=== PATIENT | male | born 1990 | race Caucasian/White ===

== ENCOUNTER 2019-05-07 13:06 | Emergency (ER) | payer MEDICAID, SELFPAY ==
[2019-05-07 13:30] VITALS: BP 145/86; PULSE 67; RESP 16; TEMP 36.6; O2SAT 95
[2019-05-07] MEDS: Bupivacaine 0.5% Pres-Free 30 ML VIAL (13:35)
--- NOTE | 2019-05-07 13:40 | W.ED.GENAD ---
Discharge Plan Disposition Patient Disposition: HOME Condition: Good Discharge Details Chief Complaint: DentalOral Clinical Impression: Pain, dental Primary Care Provider: None,None ED Provider: José Miguel Crockett Home Meds and New Rx's Prescriptions: New amoxicillin-pot clavulanate [Augmentin] 875-125 mg tablet 1 tab PO BID Qty: 20 RF: 0 Discharge Instructions Instructions: Toothache (ED) Additional Instructions: You have a broken tooth with subsequent pain. Please take the antibiotic as directed, contact your dentist as soon as possible, and take Tylenol and Motrin as directed. You can take 800 mg of ibuprofen every 6 hours and 1000 mg of Tylenol every 6 hours. If you notice any worsening of your symptoms, or any new symptoms such as vomiting, diarrhea, fever, chills, shortness of breath, chest pain, numbness, weakness, or fainting , please return immediately to the emergency department for reevaluation. Please follow up with your primary care provider as soon as possible for reassessment and reevaluation. As always, it was a pleasure participating in your medical care today. Medical Decision Making This is a 29-year-old male with a history of notable poor dentition dental caries who presents today for 3 days of right frontal upper incisor pain, he fractured his tooth and has had pain since then. Exam demonstrates a dental carry on his fractured tooth. No evidence of periapical abscess or other red flags. Dental block was performed and he had near complete resolution of his pain. He will be discharged home with Augmentin, a dental sheet, recommendations for close follow-up, and Tylenol Motrin. We discussed red flags which to return. I have extensively reviewed the treatment plan and discharge instructions with the patient and their family. I have addressed all patient concerns at this time. The patient and family was made aware of what symptoms to monitor for that would warrant a return to the emergency department. Discussed the plan with the patient and family, they demonstrate verbal understanding and agreement with our assessment and plan at this time. Time out was taken to identify the correct patient, procedure, and site. Risks and benefits were discussed with the patient and consent was obtained. Direct pressure was held over the area prior to the procedure to reduce painful injection. 5 cc?s of Lidocaine 1% and Bupivacaine 0.25% was instilled into the right upper superior alveolar space over the canine with a 27 gauge needle.Complete analgesia was obtained. The patient tolerated the procedure. There were no complications. HPI General Date/Time Provider Initiated Documentation: 05/07/19 13:28. HPI Narrative: This is a 29-year-old male with no significant past medical history except for poor dentition who presents today for dental pain. Patient states that over the last 2 to 3 days he has noted significant pain after a nontraumatic breaking of his right upper incisor. Since then pain has gradually worsened, and has become unbearable. He denies any fever or chills. He has not seen a dentist for years, and he has notably been delaying care for his teeth. He denies any headache, neck pain, shortness of breath, discharge. No other modifying factors. No recent past surgical history, no pertinent family history. Related Data Home Medications Medication Instructions Recorded Confirmed amoxicillin-pot clavulanate 1 tab PO BID #20 tab 05/07/19 [Augmentin] Previous Rx's Medication Instructions Recorded amoxicillin-pot clavulanate 1 tab PO BID #20 tab 05/07/19 [Augmentin] Allergies Allergy/AdvReac Type Severity Reaction Status Date / Time No Known Allergies Allergy Unverified 05/07/19 13:32 General Stated Complaint: DentalOral CHELSI: 4 Review of Systems Review of Systems All systems reviewed & are unremarkable except as noted in HPI and below PFSH Social History Smoking/Tobacco Use Status: Never Alcohol Intake: never Substance use type: marijuana Do you feel safe in your relationship?: Yes Exam Narrative Exam Narrative: 1.Const: Well-nourished, Well-developed, appearing stated age 2.Eyes: PERRL, no conjunctival injection, and symmetrical lids. 3.ENT: Atraumatic external nose and ears. Moist MM. Neck: Symmetric, trachea midline, No thyromegaly. Notably poor dentition throughout, fractured tooth with evidence of notable dental caries over the right front upper incisor. No evidence of drainage, no evidence of periapical abscess. 4.CVS: +S1/S2, No murmurs or gallops. Peripheral pulses 2+ and equal in all extremities. Brisk capillary refill in all extremities. 5.RESP: Unlabored respiratory effort. Clear to auscultation bilaterally. No wheezes rales or rhonchi 6.GI: Soft, Nontender/Nondistended, No hepatosplenomegaly. No guarding or rebound. 7.MSK: Normocephalic/Atraumatic, Extremities w/o deformity or ttp No cyanosis or clubbing, Normal movement of all extremities 8.Skin: Warm, Dry. No rashes or lesions. 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 Sensation grossly intact, no focal neurologic deficits. 10.Psych: (AAO) x3. Appropriate mood and affect Course Vital Signs Temperature 36.6 C 05/07/19 13:30 Pulse 67 05/07/19 13:30 Respiratory Rate 16 05/07/19 13:30 Blood Pressure 145/86 H 05/07/19 13:30 Pulse Oximetry 95 05/07/19 13:30 Temperature 36.6 C 05/07/19 13:30 Temperature Source Skin 05/07/19 13:30 Pulse 67 05/07/19 13:30 Respiratory Rate 16 05/07/19 13:30 Respiratory Effort Non-Labored 05/07/19 13:30 Blood Pressure 145/86 H 05/07/19 13:30 Blood Pressure Position Sitting 05/07/19 13:30 Pulse Oximetry 95 05/07/19 13:30 Oxygen Delivery Method Room Air 05/07/19 13:30 Oxygen Flow Rate 0 05/07/19 13:30 Pain Level 10 05/07/19 13:30
--- NOTE | 2019-05-07 14:16 | NUR.NOTE ---
Nursing Note: Patient called stating feels like pain coming back. Per Dr. Crockett to do the tylenol, motrin and ice application as discussed. If the pain then continues or get worse then to return to the ED. Rosmery Stone.
== END 2019-05-07 13:49 | disposition home or self-care (01) ==
LOC: ER 13:48
PROVIDERS: Emergency Provider Student in an Organized Health Care Education/Training Program
DX: K08.89 Other specified disorders of teeth and supporting structures (principal); K02.9 Dental caries, unspecified; K03.81 Cracked tooth
CPT/HCPCS: 99283

== ENCOUNTER 2020-04-10 11:07 | Emergency (ER) | payer MEDICAID, SELFPAY ==
[2020-04-10 11:12] VITALS: BP 126/80; PULSE 77; RESP 16; TEMP 36.9; O2SAT 100
--- NOTE | 2020-04-10 11:47 | W.ED.GENAD ---
Discharge Plan Disposition Patient Disposition: HOME Condition: Stable Discharge Details Chief Complaint: Nk/Back Pain Clinical Impression: Acute back pain Primary Care Provider: Ari Barker ED Provider: Junior Wilcox Home Meds and New Rx's Prescriptions: No Action No Known Home Meds RF: 0 Discharge Instructions Instructions: Back Pain (ED) Additional Instructions: At this time we discussed an x-ray and you have declined. You do not want any stronger pain medication and you have told me that you will continue using marijuana for pain relief. I do recommend [id number] Tylenol and/or Motrin as directed as well. Cool and/or warm compresses every 2 hours for 20 minutes. Please watch for new or worsening symptoms and return to the ER for any concerns. Follow-up with your primary care provider as already scheduled next week but I do recommend attempts to be seen sooner. Outpatient physical therapy may be indicated if more conservative therapy does not help. Outpatient referral to orthopedics or back specialist may also be indicated. Stand Alone Forms: Work Release Discharge Data Discharge Date/Time-TO BE ENTERED AT DEPARTURE: 04/10/20 12:00 Medical Decision Making This is a 29-year-old gentleman who presents with left lower back pain that has been present since Wednesday. He denies any obvious trauma but does report heavy lifting repetitive motion at work. He was laid off for quite some time because of COVID, began working roughly 1 month ago. Denies any radiation of the discomfort, abdominal pain, pain in his testicles or scrotum, penile discharge, numbness, tingling, weakness in his lower extremities. He appears well, nontoxic, is afebrile, and he is neurologically intact. He declines any imaging or pain medication. Discussed that the most likely diagnosis is certainly musculoskeletal. No signs of cauda equina. Given he does not want additional medication or X-ray, therapy options are certainly limited. Patient would like a work note for the rest of the week, will continues an [id number] medication as well as using marijuana. He will follow-up with his primary care provider next month as already scheduled and if symptoms persist we will discuss physical therapy, potential referral to specialist. Patient has no additional questions or concerns and is comfortable with this plan. Upon discharge he ambulates steadily Medical Records Medical records reviewed: Yes I reviewed the patient's medical records. HPI General Mode of arrival: ambulatory. Date/Time Provider Initiated Documentation: 04/10/20 11:15. Limitations to Documentation: no limitations. Information obtained by: patient. HPI Narrative: This is a 29-year-old gentleman presenting for left lower back pain that began Wednesday, is worse with movement. He reports a history of sciatica but this feels differently. He reports that standing completely upright does make the pain worse. He did take [id number] Motrin with mild relief and reports better relief with marijuana. He does not want an x-ray today because he is concerned of the cost however he is concerned about a bulging disc. I explained to him that an MRI would likely be the study of choice, he would like to talk with his primary care regarding this. Patient tells me that he does not want any additional pain medication here in the ER. He denies recent illness or trauma reports heavy lifting and repetitive motion at work. He denies any fever, abdominal pain, midline point tenderness, change in bowel or bladder function, numbness, tingling, weakness in his lower extremities. Given he does not want pain medication or an x-ray, I asked the patient how I can best help him today. He would like a work note for the rest of the week Related Data Home Medications Medication Instructions Recorded Confirmed Unknown [No Known Home Meds] 04/10/20 04/10/20 Allergies Allergy/AdvReac Type Severity Reaction Status Date / Time No Known Allergies Allergy Unverified 04/10/20 11:16 General Stated Complaint: Nk/Back Pain CHELSI: 3 Review of Systems Constitutional Constitutional: Denies fatigue, Denies fever(s) and Denies weakness Cardiovascular Cardiovascular: Denies chest pain and Denies dyspnea Respiratory Respiratory: Denies cough and Denies dyspnea Gastrointestinal Gastrointestinal: Denies abdominal pain, Denies nausea and Denies vomiting Genitourinary Genitourinary: Denies dysuria Musculoskeletal Musculoskeletal: Reports back pain, Denies myalgias, Denies arthralgias, Denies numbness and Denies tingling Integumentary/Breasts Skin/Breast: Denies rash Neurologic Neurologic: Denies numbness, Denies tingling and Denies weakness Endocrine Endocrine: Denies fatigue [facility] Social History Smoking/Tobacco Use Status: Current every day Tobacco Type: cigarettes Alcohol Intake: never Drug use: Daily Substance use type: marijuana Do you feel safe in your relationship?: Yes Exam Const General: cooperative, healthy appearing, comfortable and no acute distress Orientation: alert and awake [facility] Head: normal to inspection, normocephalic and atraumatic Mouth: moist mucous membranes Eyes Conjunctivae: conjunctivae normal Neck Neck: normal visual inspection, full ROM, trachea midline, supple and nontender Resp Effort & Inspection: normal respiratory effort and able to speak in complete sentences Auscultation: clear to auscultation bilaterally Cardio Rate: regular rate Rhythm: regular rhythm GI Palpation: soft and nontender Back/Spine/Pelvis Back: back tenderness (Left lower lumbar region, no midline tenderness) Thoracic/Lumbar Spine: straight leg raise positive (Left leg 10 degrees, right leg 25 degrees) Skin General skin exam: no rashes or lesions noted Neuro General: patient alert, patient awake, patient oriented x3, moves all extremities and no focal motor deficits Gait: normal gait Motor: muscle tone normal throughout and strength 5/5 throughout Sensory Exam: no sensory deficits noted Extrem General: normal to inspection, full ROM, capillary refill normal, no pedal edema and no calf tenderness Psych Appearance: grossly normal Mental Status: mental status grossly normal Course Vital Signs Vital signs: Vital Signs Temperature 36.9 C 04/10/20 11:12 Pulse 77 04/10/20 11:12 Respiratory Rate 16 04/10/20 11:12 Blood Pressure 126/80 04/10/20 11:12 Pulse Oximetry 100 04/10/20 11:12 Temperature 36.9 C 04/10/20 11:12 Temperature Source Skin 04/10/20 11:12 Pulse 77 04/10/20 11:12 Respiratory Rate 16 04/10/20 11:12 Respiratory Effort 04/10/20 11:12 Blood Pressure 126/80 04/10/20 11:12 Blood Pressure Position Sitting 04/10/20 11:12 Pulse Oximetry 100 04/10/20 11:12 Oxygen Delivery Method Room Air 04/10/20 11:12 Oxygen Flow Rate 0 04/10/20 11:12 Pain Level 10 04/10/20 11:17
[2020-04-10 11:59] VITALS: BP 126/80; PULSE 77; RESP 16; TEMP 36.9; O2SAT 100
== END 2020-04-10 12:00 | disposition home or self-care (01) ==
PROVIDERS: Emergency Provider Physician Assistant; PCP Family Medicine
DX: M54.5 Low back pain (principal); X50.0XXA Overexertion from strenuous movement or load, initial encounter; Z53.29 Procedure and treatment not carried out because of patient's decision for other reasons
CPT/HCPCS: 99283

== ENCOUNTER 2020-07-17 04:55 | Emergency (ER) | payer MEDICAID, SELFPAY ==
[2020-07-17 05:00] VITALS: BP 130/84; PULSE 79; RESP 16; TEMP 36.3; O2SAT 98
--- NOTE | 2020-07-17 05:00 | DI.RAD_ITS ---
EXAM: XR SHOULDER RT COMPLETE 2+V CLINICAL HISTORY: trauma. TECHNIQUE: 2D digital imaging was performed. COMPARISON: CR CHEST 2 VIEWS PA,LAT from 03/14/2011 FINDINGS: BONES: No acute fracture is present. No bony destructive lesion is seen. JOINTS: Compared to the prior examination, the distal clavicle is mildly superiorly located relative to the adjacent acromion. Mild ligament sprain may be considered. SOFT TISSUE: Normal. IMPRESSION: New mild elevation of the clavicle with respect to the acromion. Ligament injury may be considered. AC joint views without and with weights should be considered for further evaluation. DATA REPOSITORY: RADIATION DOSE DELIVERED:
--- NOTE | 2020-07-17 05:11 | ED.GENADUL_ITS ---
Discharge Plan Disposition Patient Disposition: HOME Condition: Good Discharge Details Clinical Impression: Injury of right shoulder Primary Care Provider: Ari Barker ED Provider: Jhonny Oliver Meds and New Rx's Prescriptions: New ibuprofen 600 mg tablet 600 mg PO Q8H PRNQty: 15 RF: 0 Discharge Instructions Instructions: Acromioclavicular Separation (ED) Additional Instructions: Preliminary radiology read is negative. I think there is evidence of AC separation. We will place you in a sling for now. Refer to orthopedics for follow-up. Ice and ibuprofen for pain and swelling. Gentle range of motion as tolerated. Stand Alone Forms: Work Release Referrals: [facility] [Provider Group] Medical Decision Making Patient presenting with right shoulder pain. Neurovascularly intact. Tender over the right AC joint. No obvious deformity. Has not taken anything for pain since last night. Will give ibuprofen and obtain right shoulder film. X-ray of right shoulder shows no fracture or dislocation. He does appear to have AC separation with clavicle sitting much higher than expected. Preliminary radiology read says negative. I will still place the patient in sling and make him nonweightbearing right upper extremity. Refer to orthopedics for further evaluation. Ice, ibuprofen, gentle range of motion as tolerated. HPI General Mode of arrival: ambulatory . Date/Time Provider Initiated Documentation: 07/17/20 05:05 . Limitations to Documentation: no limitations . Information obtained by: patient and RN notes reviewed . HPI Narrative: Patient presents to ED with right shoulder pain. Patient is right-handed. He fell last night going into his house. He has had pain all night long. He is supposed to be at work this morning but is unable to move his right upper extremity without severe pain. He denies headache or neurologic changes. He denies neck pain. He denies chest pain or difficulty breathing. Related Data Home Medications Medication Instructions Recorded Confirmed ibuprofen 600 mg PO Q8H PRN #15 tab 07/17/20 Previous Rx's Medication Instructions Recorded ibuprofen 600 mg PO Q8H PRN #15 tab 07/17/20 Allergies Allergy/AdvReac Type Severity Reaction Status Date / Time No Known Allergies Allergy Verified 07/17/20 05:02 General Stated Complaint: Orthopedic CHELSI: 4 Review of Systems Narrative: As documented in HPI otherwise negative as below. Const: no fever, chills, weakness Resp: no cough, SOB, pleuritic pain CV: no CP, diaphoresis, edema, syncope GI: no abdominal pain, nausea, vomiting, diarrhea Neuro: no headache, numbness, focal weakness, confusion [facility] Medical History No active medical problems Surgical History No significant past surgical history Family History (Updated 05/13/20 @ 14:18 by Monik Munoz) Mother No problems noted. Father Alcohol abuse Sister No problems noted. Sister No problems noted. Sister No problems noted. Maternal Grandfather No problems noted. Paternal Grandfather No problems noted. Maternal Grandmother No problems noted. Paternal Grandmother , 27 No problems noted. Social History Smoking/Tobacco Use Status: Current every day Tobacco Type: cigarettes Quit status: has quit before Second Hand Exposure: Yes Alcohol Intake: current Alcohol Intake frequency: a few times a week Alcohol type: beer Drug use: Daily Substance use type: marijuana Caregiver/Support person: No Housing: apartment Communication Needs: None Pets and animals: Yes Pets and animals: cat(s) Sexually active: Yes Do you think of yourself as: straight/heterosexual Current gender identity: male What is your relationship status?: never How often do you talk on the phone with friends or family?: twice per week How often do you get together with friends or relatives?: three or more times per week How often do you attend temple or sabianist services?: decline to answer Do you belong to any clubs or organized social groups?: no Panel score (0-1 are the most socially isolated patients): 1 What type of physical activity do you participate in: other Details: SKATEBOARDING Duration: > 90 minutes/day Frequency: 3-4 times per week Seatbelt use: always Helmet use: No Drive intox or ride w/intox dolly driver: No Do you feel safe at home: Yes Do you feel safe in your relationship?: Yes Exam Narrative Exam Narrative: Vitals: Afebrile with normal vitals and room air pulse ox. Const: WDWN male in NAD. HEENT: NC/AT. Normal facial exam. Neck: Supple. Trachea midline. No midline tenderness. Lungs: Normal respiratory effort. Lungs are clear. Cor: RRR without murmur/gallop. Good radial pulses. Back: No midline tenderness. Neuro: A+O x 3. Normal speech, mentation, gait. Cranial nerves II - XII grossly intact. No gross motor or sensory deficit. Ext: No obvious deformity. Marked decrease range of motion right shoulder. Tenderness over the right AC joint. Neurovascularly intact distally. Sensation of the right deltoid. Skin: Warm and dry without laceration. Course Vital Signs Vital signs: Vital Signs Temperature 97.3 F L 07/17/20 05:00 Pulse 79 07/17/20 05:00 Respiratory Rate 16 07/17/20 05:00 Blood Pressure 130/84 07/17/20 05:00 Pulse Oximetry 98 07/17/20 05:00 Temperature 97.3 F L 07/17/20 05:00 Temperature Source Temporal Artery Scan 07/17/20 05:00 Pulse 79 07/17/20 05:00 Respiratory Rate 16 07/17/20 05:00 Respiratory Effort Non-Labored 07/17/20 05:05 Blood Pressure 130/84 07/17/20 05:00 Blood Pressure Position Sitting 07/17/20 05:00 Pulse Oximetry 98 07/17/20 05:00 Oxygen Delivery Method Room Air 07/17/20 05:00 Oxygen Flow Rate 0 07/17/20 05:00 Pain Level 10 07/17/20 05:05
[2020-07-17] MEDS: Ibuprofen 600 MG TAB PO (05:17)
--- NOTE | 2020-07-17 05:34 | DI.VRAD_ITS ---
PROCEDURE INFORMATION: Exam: XR Right Shoulder Exam date and time: 07/17/2020 5:30 AM Age: 30 years old Clinical indication: Injury or trauma; Fall; Transportation mode: Fel off skateboard landing on shoulder; Initial encounter; Blunt trauma (contusions or hematomas); Right; Injury date: 07/16/20; Injury details: Fell onto shoulder and heard a pop, pain and limited range of motion TECHNIQUE: Imaging protocol: XR Right shoulder. Views: 2 or more views. COMPARISON: No relevant prior studies available. FINDINGS: Bones/joints: Normal. Soft tissues: Normal. IMPRESSION: No acute findings. Dictated and Authenticated by: Lobito Alejandro MD. Ordering:VIKY Barry MD
[2020-07-17 05:46] VITALS: BP 130/84; PULSE 79; RESP 16; TEMP 36.3; O2SAT 98
== END 2020-07-17 05:51 | disposition home or self-care (01) ==
PROVIDERS: Emergency Provider Emergency Medicine; PCP Family Medicine
DX: S43.51XA Sprain of right acromioclavicular joint, initial encounter (principal); W19.XXXA Unspecified fall, initial encounter
CPT/HCPCS: 99283; 73030; L3650

== ENCOUNTER 2021-01-11 22:53 | Emergency (ER) | payer MEDICAID, SELFPAY ==
--- NOTE | 2021-01-11 23:01 | W.ED.GENAD ---
Discharge Plan Disposition Patient Disposition: HOME Condition: Improving Discharge Details Clinical Impression: Exudative tonsillitis, Back pain Primary Care Provider: Ari Barker ED Provider: Jhonny Oliver [facility] and New Rx's Prescriptions: New clindamycin HCl 300 mg capsule 300 mg PO TID Qty: 20 RF: 0 Continued ibuprofen 600 mg tablet 600 mg PO Q8H PRNQty: 15 RF: 0 Changed acetaminophen [Tylenol] 325 mg Capsule 650 mg PO Q6H PRN PRNQty: 0 RF: 0 Discharge Instructions Instructions: Tonsillitis (ED), Back Pain (ED) Additional Instructions: Take it easy for the rest of the weekend. Drink plenty of fluids to stay hydrated. Alternate acetaminophen with ibuprofen for pain. Salt water gargles will help with throat discomfort. Take all of antibiotic. Follow-up with primary care next week if no improvement. Return to ED for difficulty breathing, inability to swallow, neurologic changes, bladder or bowel function, other concerns. Stand Alone Forms: Work Release Referrals: Ari Barker [Primary Care Provider] - Discharge Data Discharge Date/Time-TO BE ENTERED AT DEPARTURE: 01/12/21 01:15 Medical Decision Making <FUNMILAYO Sawyer - Last Filed: 01/12/21 10:35> Patient presents complaining of sore throat that began yesterday, exacerbation of his left low back hip discomfort now on the right side. Clinically he appears uncomfortable but his vital signs are unremarkable. He does appear to have exudative tonsillitis on examination. I do question whether the rash that he has on his chest could be secondary to his potential strep infection versus allergic reaction to the NyQuil that he took shortly before arrival. Will obtain IV access, give IV fluids, CBC, CMP, CPK, urinalysis, rapid strep. Patient denies any history of IV drug use. There is no midline point tenderness. Patient is neurologically intact. Rapid strep positive. I went to make the patient aware of his strep positive findings. Patient reports that his back pain is severe, he is crying. Awaiting renal function before I provide any additional medications. Pain seems out of proportion to physical examination. Case discussed with Dr. Oliver. No evidence of cauda equina, sepsis, neurologic deficit, midline point tenderness, septic joint, etc. Will provide the IV fluid, will add on IV Toradol, Decadron, clindamycin and reassess. WBC of 22.70. Creatinine 1.0, GFR greater than 60. CPK pending Medical Records Medical records reviewed: Yes I reviewed the patient's medical records. Lab Data Lab results reviewed: Yes I reviewed the patient's lab results. Lab results narrative: 01/11/21 23:43 Pharynx Streptococcus Screen (TONO) - Pending Laboratory Tests Range/Units 01/11/21 01/11/21 01/11/21 23:01 23:25 23:25 WBC (4.4-10.8) 10^3/uL 22.70 H RBC (4.36-5.78) 10^6/uL 4.89 Hgb (13.5-17.5) g/dL 13.7 Hct (40.0-50.0) % 41.2 MCV (80-95) fL 84.3 MCH (27.0-33.0) pg 28.0 MCHC (32.0-36.0) % 33.3 RDW (11.8-14.1) % 12.8 Plt Count (130-400) 10^3/uL 221 MPV (8.0-11.0) fL 9.3 Immature Gran % 0.7 Neutrophils % 88.0 Lymphocytes % 3.3 Monocytes % 7.5 Eosinophils % 0.2 Basophils % 0.3 Nucleated RBC % % 0 Absolute Neutrophils (1.2-6.7) 10^3/uL 19.98 H Absolute Lymphocytes (1.2-3.4) 10^3/uL 0.75 L Absolute Monocytes (0.1-0.8) 10^3/uL 1.70 H Absolute Eosinophils (0.0-0.7) 10^3/uL 0.05 Absolute Basophils (0.0-0.2) 10^3/uL 0.07 RBC Morphology Normal Sodium (136-145) mmol/L 135 L Potassium (3.5-5.1) mmol/L 3.6 Chloride (98-107) mmol/L 99 Carbon Dioxide (21.0-32.0) mmol/L 24.3 Anion Gap (3-11) mmol/L 11.7 H BUN (7-18) mg/dL 12 Creatinine (0.70-1.30) mg/dL 1.0 Estimated GFR/1.73 m2 (mL/min/1.73m2) >= 60.00 Glucose (74-106) mg/dL 126 H Calcium (8.5-10.1) mg/dL 8.6 Total Bilirubin (0.2-1.0) mg/dL 0.8 AST (15-37) U/L 13 L ALT (16-63) U/L 19 Alkaline Phosphatase (46-116) U/L 71 Total Protein (6.4-8.2) g/dL 7.7 Albumin (3.4-5.0) g/dL 3.6 Urine Color (Yellow) Yellow Urine Clarity (Clear) Clear Urine pH (5-8) 6.0 Ur Specific Dora (1.005-1.025) >= 1.030 H Urine Protein (Negative) mg/dL 30 H Urine Ketones (Negative) mg/dL Negative Urine Blood (Negative) Negative Urine Nitrite (Negative) Negative Urine Bilirubin (Negative) Negative Urine Urobilinogen (Up TO 0.2) EU/dL 0.2 Ur Leukocyte Esterase (Negative) Negative Urine RBC (0-2) HPF Negative Urine WBC (0-5) HPF 3-5 Ur Epithelial Cells (Negative) HPF Negative Urine Crystals (Negative) HPF Negative Urine Bacteria (Negative) HPF Negative Urine Casts (Negative) LPF Negative Urine Mucus (Negative) Moderate Urine Other (Negative) Negative Ur Culture Indicated? No Urine Glucose (Negative) mg/dL Negative <Jhonny Oliver MD - Last Filed: 01/12/21 01:04> Patient signed out to me pending reevaluation after medications. He is feeling much better. He has had previous back problems similar to what he is having now in the past. He denies any acute injury. He seems to have responded to the Toradol. His throat is feeling much better he is able to swallow better. At this point I am not convinced the strep throat has anything to do with the back that is likely coincidental given his previous history of back problems. Patient will be continued on clindamycin for his tonsillitis. We will have him continue nonsteroidals and take it easy the rest of the weekend. He may try some heat to his back. Follow-up with primary care next week if not improving. Return to ED if inability to swallow, difficulty breathing, neurologic changes, bladder or bowel dysfunction. Lab Data Lab results reviewed: Yes I reviewed the patient's lab results. HPI <FUNMILAYO Sawyer - Last Filed: 01/12/21 10:35> General Mode of arrival: ambulatory. Date/Time Provider Initiated Documentation: 01/11/21 22:58. Limitations to Documentation: no limitations. Information obtained by: patient. HPI Narrative: This is a 30-year-old gentleman, presents to the ER today with multiple complaints. First he states that he has had left lower hip pain for the past month. He went through something similar last year, did physical therapy, but just did not have time to continue the therapy. He states yesterday he is again ported outside for approximately 3 hours. Subsequently he developed a sore throat. He noticed a fever over the past 24 hours, T-max 100.0. He then developed right hip pain that feels identical to the left side. States nothing really makes it worse or better. He took Tylenol and Motrin earlier today but does not really make any difference in his symptoms. He did not have his NyQuil this evening and approximately 30 minutes later developed a rash across his chest. He denies any pain or itching, rash. He denies recent trauma. Denies headache, neck pain, chest pain, shortness of breath abdominal pain, nausea, vomiting, numbness, tingling, weakness, bowel or bladder incontinence-retention. Related Data Home Medications Medication Instructions Recorded Confirmed ibuprofen 600 mg PO Q8H PRN #15 tab 07/17/20 01/11/21 acetaminophen [Tylenol] 650 mg PO Q6H PRN PRN #0 cap 01/12/21 clindamycin HCl 300 mg PO TID #20 cap 01/12/21 Previous Rx's Medication Instructions Recorded ibuprofen 600 mg PO Q8H PRN #15 tab 07/17/20 acetaminophen [Tylenol] 650 mg PO Q6H PRN PRN #0 cap 01/12/21 clindamycin HCl 300 mg PO TID #20 cap 01/12/21 Allergies Allergy/AdvReac Type Severity Reaction Status Date / Time No Known Allergies Allergy Verified 01/11/21 23:11 General CHELSI: 4 Review of Systems <FUNMILAYO Sawyer - Last Filed: 01/12/21 10:35> Constitutional Constitutional: Reports fever(s), Denies headache(s) and Denies weakness ENT Ears, Nose, Mouth, and Throat: Denies headache(s), Denies neck pain and Reports sore throat Cardiovascular Cardiovascular: Denies chest pain and Denies dyspnea Respiratory Respiratory: Denies cough and Denies dyspnea Gastrointestinal Gastrointestinal: Denies abdominal pain, Denies nausea and Denies vomiting Genitourinary Genitourinary: Denies dysuria Musculoskeletal Musculoskeletal: Reports back pain, Denies neck pain, Denies numbness and Denies tingling Integumentary/Breasts Skin/Breast: Reports rash Neurologic Neurologic: Denies headache(s), Denies numbness, Denies tingling and Denies weakness [facility] <FUNMILAYO Sawyer - Last Filed: 01/12/21 10:35> Medical History No active medical problems Surgical History No significant past surgical history Family History Mother No problems noted. Father Alcohol abuse Sister No problems noted. Sister No problems noted. Sister No problems noted. Maternal Grandfather No problems noted. Paternal Grandfather No problems noted. Maternal Grandmother No problems noted. Paternal Grandmother , 27 No problems noted. Social History Smoking/Tobacco Use Status: Current every day Tobacco Type: cigarettes Quit status: has quit before Second Hand Exposure: Yes Smoking risk assessment performed?: Yes Alcohol Intake: former Drug use: Daily Substance use type: marijuana Caregiver/Support person: No Housing: apartment Communication Needs: None Pets and animals: Yes Pets and animals: cat(s) Sexually active: Yes Do you think of yourself as: straight/heterosexual Current gender identity: male What is your relationship status?: never How often do you talk on the phone with friends or family?: twice per week How often do you get together with friends or relatives?: three or more times per week How often do you attend anglican or judaism services?: decline to answer Do you belong to any clubs or organized social groups?: no Panel score (0-1 are the most socially isolated patients): 1 What type of physical activity do you participate in: other Details: SKATEBOARDING Duration: > 90 minutes/day Frequency: 3-4 times per week Seatbelt use: always Helmet use: No 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 Do you feel safe at home: Yes Do you feel safe in your relationship?: Yes Exam <FUNMILAYO Sawyer - Last Filed: 01/12/21 10:35> Const General: cooperative, healthy appearing, comfortable and no acute distress Orientation: alert, awake and oriented x3 HENMT Head: normal to inspection, normocephalic and atraumatic Ears: external ears normal, TM's normal bilaterally and EAC's normal Face and sinus: normal facial exam Mouth: moist mucous membranes Throat: uvula midline, abnormal tonsil bilaterally erythema and exudates, no peritonsillar masses and posterior oropharynx abnormal erythema Eyes General: appearance normal, both eyes and all related structures Conjunctivae: conjunctivae normal Neck Neck: normal visual inspection, full ROM, no lymphadenopathy, no meningeal signs, trachea midline, supple and nontender Neck images: 1. Scant slightly papular erythematous rash, blanchable. Skin is intact. There is no warmth or tenderness. Chest Chest: normal palpation of entire chest wall Resp Effort & Inspection: normal respiratory effort and able to speak in complete sentences Auscultation: clear to auscultation bilaterally Cardio Rate: regular rate Rhythm: regular rhythm GI Palpation: soft and nontender Back/Spine/Pelvis Back: no CVA tenderness and back tenderness Back/spine/pelvis image: 1. There is diffuse discomfort to palpation. There is no erythema, warmth, fluctuance or induration. There is no midline point tenderness. Negative straight leg raise bilaterally. Skin Rashes: other (Rash as above) Neuro General: patient alert, patient awake, moves all extremities and no focal motor deficits Cognition: normal cognition Speech: speech normal Gait: antalgic Motor: muscle tone normal throughout and strength 5/5 throughout Sensory Exam: no sensory deficits noted Extrem General: normal to inspection, full ROM, capillary refill normal, no pedal edema and no calf tenderness Psych Appearance: grossly normal Mental Status: mental status grossly normal Sign Out <FUNMILAYO Sawyer - Last Filed: 01/12/21 10:35> Sign Out Data: Sign Out Comment: Sore throat and back pain over the past 24-48 hours. Rapid strep positive. Pain seems to be out of proportion. 22 white blood cell count. Patient to be given IV fluid, Toradol, Decadron, clindamycin and will need reassessment. CPK is pending. Last updated by Junior Wilcox PA at 01/11/21 23:57
[2021-01-11 23:03] VITALS: BP 133/68; PULSE 87; RESP 20; TEMP 37; O2SAT 100
[2021-01-11 23:09] LABS: Bilirubin Negative (Negative); Blood Negative (Negative); Clarity Clear (Clear); Glucose Negative (Negative); Ketones Negative (Negative); Leukocyte Esterase Negative (Negative); Nitrite Negative (Negative); Specific Gravity >= 1.030 (1.005-1.025); Urobilinogen 0.2 EU/dL (Up TO 0.2)
[2021-01-11 23:17] LABS: Bacteria Negative HPF (Negative); C & S Indicated? No; Casts Negative LPF (Negative); Crystals Negative HPF (Negative); Epithelial Cells Negative HPF (Negative); Mucus Moderate (Negative); Other Cells Negative (Negative); RBC Negative HPF (0-2)
[2021-01-11] MEDS: Normal Saline 1,000 ML 1000 ML IV (23:30)
[2021-01-11 23:32] LABS: Abs Immature Grans 0.16 10^3/uL (0.0-0.06); Absolute Basophil Count 0.07 10^3/uL (0.0-0.2); Absolute Eosinophil Count 0.05 10^3/uL (0.0-0.7); Absolute Lymphocyte Count 0.75 10^3/uL (1.2-3.4); Basophils % 0.3; Eosinophils % 0.2; HCT 41.2 % (40.0-50.0); HGB 13.7 g/dL (13.5-17.5); Immature Grans % 0.7; Lymphocytes % 3.3; MCHC 33.3 % (32.0-36.0); MCV 84.3 fL (80-95); MPV 9.3 fL (8.0-11.0); Monocytes % 7.5; Nucleated RBC 0 %; Platelet Count 221 10^3/uL (130-400); RBC 4.89 10^6/uL (4.36-5.78); RDW 12.8 % (11.8-14.1); RDW-SD 39.5 fL
[2021-01-11 23:42] LABS: Absolute Neutrophil Count 19.98 10^3/uL (1.2-6.7)
[2021-01-11 23:43] LABS: Diff Comment Agrees w/ Instrument; RBC Morphology Normal
[2021-01-11 23:46] LABS: ALT 19 U/L (16-63); AST 13 U/L (15-37); Albumin 3.6 g/dL (3.4-5.0); Alkaline Phosphatase 71 U/L (46-116); Anion Gap 11.7 mmol/L (3-11); BUN 12 mg/dL (7-18); Bilirubin, Total 0.8 mg/dL (0.2-1.0); CO2 24.3 mmol/L (21.0-32.0); Calcium 8.6 mg/dL (8.5-10.1); Chloride 99 mmol/L (98-107); Glucose 126 mg/dL (74-106); Potassium 3.6 mmol/L (3.5-5.1); Sodium 135 mmol/L (136-145); Total Protein 7.7 g/dL (6.4-8.2)
[2021-01-11 23:54] LABS: Creatine Kinase 110 U/L (39-308)
[2021-01-11] MEDS: Ketorolac 30 MG/ML VIAL IVP (23:59)
[2021-01-12] VITALS: BP 106/51; PULSE 90; RESP 20; O2SAT 99
[2021-01-12] MEDS: Dexamethasone 10 MG/ML VIAL IVP (00:02)
[2021-01-12] MEDS: Normal Saline 1,000 ML 1000 ML IV (00:05)
[2021-01-12] MEDS: CLINDAMYCIN 600 MG/50 ML BAG 100 MG IVPB (00:10)
[2021-01-12 00:30] VITALS: BP 120/55; PULSE 97; RESP 18; O2SAT 98
[2021-01-12 01:00] VITALS: BP 106/26; PULSE 92; RESP 18; O2SAT 98
== END 2021-01-12 01:15 | disposition home or self-care (01) ==
PROVIDERS: Physician Assistant; Emergency Provider Emergency Medicine; PCP Family Medicine
DX: J03.00 Acute streptococcal tonsillitis, unspecified (principal); M54.5 Low back pain; R21 Rash and other nonspecific skin eruption
CPT/HCPCS: 80053; 82550; 87880; 96361; 96365; 96375; 99284; 81003; 81015; 85025; 87081; J1100; J1885

== ENCOUNTER 2022-04-30 13:27 | Outpatient (REF) | payer MEDICAID, SELFPAY | END 2022-04-30 13:28 | disposition home or self-care (01) | LOC: LBN 13:27 | PROVIDERS: PCP Family Medicine; Visit Provider Nurse Practitioner Family | DX: L02.01 Cutaneous abscess of face (principal) | CPT/HCPCS: 87070; 87205 ==

== ENCOUNTER 2023-07-08 16:25 | Emergency (ER) | payer BC, MEDICAID, SELFPAY ==
[2023-07-08 16:29] VITALS: BP 157/92; PULSE 102; RESP 20; TEMP 36.4; O2SAT 100
--- NOTE | 2023-07-08 16:30 | RT.EKG_ITS ---
APPROVED REPORT Exam: Resting ECG Reason for Exam: jaw pain Patient Location: E HR:83 bpm ECG Measurements Heart Rate 83 AXIS AZ 165 P 45 QRSd 96 QRS 71 QT 380 T 40 QTc 448 Conclusion Sinus rhythm...normal P axis, V-rate 60- 99 Physician: no stemi
--- NOTE | 2023-07-08 16:51 | W.ED.GENAD ---
Discharge Plan Disposition Patient Disposition: Home Condition: Good Discharge Details Clinical Impression: Pain, dental Primary Care Provider: Nicolette Marquez ED Provider: José Miguel Crockett Home Meds and New Rx's Prescriptions: New amoxicillin-pot clavulanate 875-125 mg tablet 1 tab PO BID Qty: 20 0RF Discontinued amoxicillin-pot clavulanate 875-125 mg tablet 1 tab PO BID Qty: 10 0RF Patient Comments: pt states not taking. No Action ibuprofen 600 mg tablet 600 mg PO Q8H PRNQty: 15 0RF acetaminophen [Tylenol] 325 mg Capsule 650 mg PO Q6H PRN PRNQty: 0 0RF Discharge Instructions Instructions: Toothache (ED) Additional Instructions: The block we administered should help improve your pain. Please take 800 mg of ibuprofen every 6 hours and 1000 mg of Tylenol every 6 hours to help with the inflammation and pain. These are the maximum doses. Please take the antibiotic as directed to help with the infection in your tooth. Please use the dental list that we have provided to contact the dentist for prompt follow-up and evaluation for tooth removal. If you notice any worsening of your symptoms, or any new symptoms such as difficulty swallowing, difficulty breathing, vomiting, diarrhea, fever, chills, shortness of breath, chest pain, numbness, weakness, or fainting , please return immediately to the emergency department for reevaluation. Please follow up with your primary care provider as soon as possible for reassessment and reevaluation. As always, it was a pleasure participating in your medical care today. Referrals: Nicolette Marquez MD [Primary Care Provider] - Medical Decision Making 33-year-old male with a past medical history of dental caries presents today for right lower tooth dental pain. Patient states that it began about 30 minutes ago. It is severe in nature. Radiate up from the right lower molars to the right upper jaw. He denies any fever or chills. He denies any vomiting or diarrhea. Ironically I did see him in 2019 for the same thing, we recommended dental evaluation at that time. Unfortunately COVID pandemic started shortly thereafter and his dental appointments were canceled. He still does have the dental list. He denies any headache or vision changes. No other complaints at this time. No other modifying factors. Exam demonstrates evidence of notable dental caries in the lower molars. Notable diseased and necrotic teeth. No periapical abscess. Symptoms appear consistent with pulpitis. Dental block was offered and the patient accepted. Bupivacaine block was administered and the patient tolerated this well. Improvement of pain was noted. He will be started on Augmentin. We will give him Tylenol and Motrin for home. He has a dental sheet still. Discussed red flags for which to return. I have extensively reviewed the treatment plan and discharge instructions with the patient and their family. I have addressed all patient concerns at this time. The patient and family was made aware of what symptoms to monitor for that would warrant a return to the emergency department. Discussed the plan with the patient and family, they demonstrate verbal understanding and agreement with our assessment and plan at this time. The documentation in this chart was dictated using [employer] dictation software. Please excuse any dictation errors. HPI General Date/Time Provider Initiated Documentation: 07/08/23 16:38. HPI Narrative: 33-year-old male with a past medical history of dental caries presents today for right lower tooth dental pain. Patient states that it began about 30 minutes ago. It is severe in nature. Radiate up from the right lower molars to the right upper jaw. He denies any fever or chills. He denies any vomiting or diarrhea. Ironically I did see him in 2019 for the same thing, we recommended dental evaluation at that time. Unfortunately COVID pandemic started shortly thereafter and his dental appointments were canceled. He still does have the dental list. He denies any headache or vision changes. No other complaints at this time. No other modifying factors. Related Data Home Medications Medication Instructions Recorded Confirmed ibuprofen 600 mg tablet 600 mg PO Q8H PRN #15 tabs 07/17/20 07/08/23 acetaminophen 325 mg capsule 650 mg PO Q6H PRN PRN #0 caps 01/12/21 07/08/23 (Tylenol) amoxicillin 875 mg-potassium 1 tab PO BID #20 tabs 07/08/23 clavulanate 125 mg tablet Previous Rx's Medication Instructions Recorded ibuprofen 600 mg tablet 600 mg PO Q8H PRN #15 tabs 07/17/20 acetaminophen 325 mg capsule 650 mg PO Q6H PRN PRN #0 caps 01/12/21 (Tylenol) amoxicillin 875 mg-potassium 1 tab PO BID #20 tabs 07/08/23 clavulanate 125 mg tablet Allergies Allergy/AdvReac Type Severity Reaction Status Date / Time No Known Allergies Allergy Verified 07/08/23 16:34 General Stated Complaint: DentalOral CHELSI: 3 Review of Systems All systems reviewed & are unremarkable except as noted in HPI and below PFSH All Active Problems Pain, dental (Acute) Skin pustule (Acute) Exudative tonsillitis (Acute) Back pain (Acute) Acromioclavicular joint separation, type 2 (Acute) right shoulder Medical History No active medical problems Surgical History No significant past surgical history Family History Mother No problems noted. Father Alcohol abuse Sister No problems noted. Sister No problems noted. Sister No problems noted. Maternal Grandfather No problems noted. Paternal Grandfather No problems noted. Maternal Grandmother No problems noted. Paternal Grandmother , 27 No problems noted. Social History Smoking/Tobacco Use Status: Current every day Tobacco Type: cigarettes Quit status: has quit before Second Hand Exposure: Yes Smoking risk assessment performed?: Yes Alcohol Intake: former Drug use: Daily Substance use type: marijuana Caregiver/Support person: No Housing: apartment Communication Needs: None Pets and animals: Yes Pets and animals: cat(s) Sexually active: Yes Do you think of yourself as: straight/heterosexual Current gender identity: male What is your relationship status?: never How often do you talk on the phone with friends or family?: twice per week How often do you get together with friends or relatives?: three or more times per week How often do you attend zoroastrianism or faith services?: decline to answer Do you belong to any clubs or organized social groups?: no Panel score (0-1 are the most socially isolated patients): 1 What type of physical activity do you participate in: other Details: SKATEBOARDING Duration: > 90 minutes/day Frequency: 3-4 times per week Seatbelt use: always Helmet use: No 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 3.ENT: Atraumatic external nose and ears. Moist MM. Neck: Symmetric, trachea midline, No thyromegaly. Notable dental caries throughout. No evidence of Ludewig's angina. Notable dental caries in the right lower molars which is where the pain is. No evidence of periapical abscess. No evidence of airway compromise. 4.CVS: +S1/S2, No murmurs or gallops. Peripheral pulses 2+ and equal in all extremities. Brisk capillary refill in all extremities. 5.RESP: Unlabored respiratory effort. Clear to auscultation bilaterally. No wheezes rales or rhonchi 6.GI: Soft, Nontender/Nondistended, No hepatosplenomegaly. No guarding or rebound. 7.MSK: Normocephalic/Atraumatic, Extremities w/o deformity or ttp No cyanosis or clubbing, Normal movement of all extremities 8.Skin: Warm, Dry. No rashes or lesions. 9.Neuro: mechanical assembly II-XII grossly intact. Sensation grossly intact, no focal neurologic deficits. 10.Psych: (AAO) x3. Appropriate mood and affect Course Vital Signs Vital signs: Vital Signs Temperature 36.4 C L 07/08/23 16:29 Pulse 102 H 07/08/23 16:29 Respiratory Rate 20 07/08/23 16:29 Blood Pressure 157/92 H 07/08/23 16:29 Pulse Oximetry 100 07/08/23 16:29 Temperature 36.4 C L 07/08/23 16:29 Temperature Source Skin 07/08/23 16:29 Pulse 102 H 07/08/23 16:29 Respiratory Rate 20 07/08/23 16:29 Respiratory Effort Normal 07/08/23 16:42 Blood Pressure 157/92 H 07/08/23 16:29 Blood Pressure Position Sitting 07/08/23 16:29 Pulse Oximetry 100 07/08/23 16:29 Oxygen Delivery Method Room Air 07/08/23 16:29 Oxygen Flow Rate 0 07/08/23 16:29 Pain Level 10 07/08/23 16:29 Procedures Nerve Block Nerve Block 1: Time out performed: Yes Local Anesthetic: Bupivicaine 0.25% Amount of anesthesia used (mL): 5 Side: right Intraoral Nerve Block: inferior alveolar Procedure Successful: Yes Patient Tolerated Procedure: well and no complications Complications: none
[2023-07-08] MEDS: Amox. 875/Clav. 125, 2 TABS/BTL 1 TAB PO (17:07)
[2023-07-08] MEDS: Bupivacaine 0.5% Pres-Free 30 ML VIAL (17:08)
[2023-07-08] MEDS: Acetaminophen 500 MG TAB 1000 MG PO (17:10)
[2023-07-08] MEDS: Ibuprofen 800 MG TAB PO (17:10)
== END 2023-07-08 17:12 | disposition home or self-care (01) ==
PROVIDERS: Emergency Provider Student in an Organized Health Care Education/Training Program; PCP Family Medicine
DX: K08.89 Other specified disorders of teeth and supporting structures (principal); K02.9 Dental caries, unspecified
CPT/HCPCS: 93005; 99283; 93010; 99282